=== PATIENT | male | born 2005 | race Caucasian/White ===

== ENCOUNTER 2025-01-30 06:04 | Emergency (ER) | payer BC ==
[~2025-01-30] VITALS: Ht 182.9 cm; Wt 79.5 kg
[2025-01-30 06:13] VITALS: O2SAT 99
[2025-01-30 07:30] LABS: BASOPHILS % 0.2 % (0.0-2.0); EOSINOPHILS % 0.1 % (0.0-5.0); HEMATOCRIT. 44.0 % (42.0-52.0); HEMOGLOBIN. 15.2 g/dL (14.0-18.0); LYMPHOCYTES % 15.7 % (20.0-50.0); MEAN PLATELET VOLUME 7.7 fl (7.4-10.4); MONOCYTES % 3.3 % (2.0-8.0); NEUTROPHILS % 80.7 % (40.0-76.0); PLATELET 191 x1000/uL (130-400); RED BLOOD CELL COUNT 4.87 mill/uL (4.7-6.1); RED CELL DISTRIBUTION WIDTH 13.1 % (11.6-14.6)
[2025-01-30 07:47] LABS: CREATININE 1.2 mg/dL (0.6-1.3); ETHANOL BLOOD 197 mg/dL (<10); UREA NITROGEN BLOOD 12 mg/dL (9-23)
[2025-01-30 07:49] LABS: ASPARTATE AMINOTRANSFERASE 22 IU/L (<34); BILIRUBIN DIRECT 0.1 mg/dL (<=3.0); BILIRUBIN TOTAL 0.4 mg/dL (0.1-1.0); PROTEIN TOTAL 7.3 g/dL (6.0-8.3)
[2025-01-30 09:53] VITALS: BP 99/38; PULSE 74; RESP 16; TEMP 36.3; O2SAT 99
== END 2025-01-30 10:07 | disposition home or self-care (01) ==
LOC: ER 06:04 → CMPBEDREQ 01-31 22:26
DX: F10.129 Alcohol abuse with intoxication, unspecified (principal); Y90.9 Presence of alcohol in blood, level not specified
CPT/HCPCS: 80076; 80048; 80320; 85025; 36415; 99285; Z7610; A4606; G0480